=== PATIENT | male | born 1935 | race Asian ===

== ENCOUNTER 2024-03-03 10:03 | Emergency (ER) | payer BC ==
[2024-03-03 11:11] LABS: Bilirubin Neg (Negative); Blood, Urine 250 (Negative); Clarity Clear (Clear); Glucose, Urine (Dipstick) 50 mg/dL (Negative); Ketone, Urine Negative (Negative); Leukocyte Negative (Negative); Nitrite Negative (Negative); Protein, Urine (Dipstick) Negative (Neg-Trace); Urobilinogen Normal mg/dL (Less than 2)
[2024-03-03 11:13] LABS: #Basophils 0.04 10x3/uL (0.0-0.2); #Eosinphils 0.28 10x3/uL (0.0-0.5); #Monocytes 0.61 10x3/uL (0.0-1.1); #Neutrophils 3.65 10x3/uL (1.5-8.4); %Basophils 0.6 % (0.0-2.0); %Eosinophils 4.4 % (0.0-6.0); %Lymphocytes 28.6 % (18.0-47.0); %Monocytes 9.5 % (0.0-10.0); %Neutrophils 56.7 % (40.0-75.0); Hemoglobin 13.7 g/dL (13.5-17.5); Mean Corpuscular HGB CONC 34.3 g/dL (32.0-36.0); Mean Corpuscular Hemoglobin 31.1 pg (27.0-33.0); Mean Corpuscular Volume 90.7 fl (81.2-95.1); Mean Platelet Volume 10.1 fl (7.4-10.4); Platelet Count 233 10x3/uL (150-450); RBC Distribution Width 12.4 % (11.5-14.5); Red Blood Cell (RBC) Count 4.41 10x6/uL (4.32-5.72); White Blood Cell (WBC) Count 6.4 10x3/uL (3.5-10.5)
[2024-03-03 11:26] LABS: ALT (SGPT) 20 U/L (8-55); AST (SGOT) 23 U/L (5-34); Albumin 3.4 g/dL (3.4-4.8); Alkaline Phosphatase 67 U/L (40-110); Anion Gap 16 mmol/L (10-20); BUN (Urea Nitrogen) 18 mg/dL (8.4-25.7); Bilirubin, Total 0.5 mg/dL (0.2-1.2); Calc. Creatinine Clearance 0 mL/min (70-130); Calcium 9.5 mg/dL (7.8-10.44); Carbon Dioxide 19 mmol/L (23-31); Chloride 103 mmol/L (98-107); Estimated GFR 69; Globulin 3.5 g/dL (2.4-3.5); Glucose 212 mg/dL (83-110); Potassium 4.5 mmol/L (3.5-5.1); Protein, Total 6.9 g/dL (5.8-8.1); Sodium 133 mmol/L (136-145)
[2024-03-03 12:20] LABS: Bacteria/HPF 2+ HPF (None Seen); CAUTI Indications for Culture Acute Hematuria; Squamous Epithelial 0-3 HPF (0-3)
[2024-03-03 12:21] LABS: Urine Culture Reflex No No
== END 2024-03-03 11:29 | disposition home or self-care (01) ==
LOC: CSHERS 10:03
DX: K62.5 Hemorrhage of anus and rectum (principal); R31.9 Hematuria, unspecified
CPT/HCPCS: 36415; 80053; 81001; 85025; 99283

== ENCOUNTER 2024-05-07 13:00 | Outpatient (CLI) | payer BC | END 2024-05-07 13:01 | disposition home or self-care (01) | LOC: CSHCT 13:00 | PROVIDERS: ATTEND Urology | DX: R31.0 Gross hematuria (principal); N20.0 Calculus of kidney; N28.1 Cyst of kidney, acquired; N40.0 Benign prostatic hyperplasia without lower urinary tract symptoms | CPT/HCPCS: 74178; 82565 ==